=== PATIENT | female | born 1960 | race Caucasian/White ===

== ENCOUNTER 2016-11-23 05:30 | Day surgery (SDC) | payer BC ==
[2016-11-17 19:51] LABS: HEMATOCRIT 37.9 % (36.0-48.0)
[2016-11-17 20:12] LABS: BUN (BLOOD UREA NITROGEN) 20 MG/DL (6-23); CALCIUM, SERUM 9.6 MG/DL (8.5-10.4); CHLORIDE, SERUM 107 MMOL/L (96-112); CO2 (CARBON DIOXIDE) 25 MMOL/L (24-34); CREATININE 0.65 MG/DL (0.55-1.02); GFR AFRICAN AMERICAN 116 ML/MIN (>=60); GFR NON AFRICAN AMERICAN 100 ML/MIN (>=60); GLUCOSE, SERUM 78 MG/DL (60-99); POTASSIUM, SERUM 5.3 MMOL/L (3.5-5.3); SODIUM, SERUM 141 MMOL/L (135-148)
--- NOTE | ~2016-11-23 | OP ---
Record Of Operation [facility] [address] [place]. 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 PROCEDURE PERFORMED: Right knee arthroscopy with arthrofibrotic tissue excision/synovectomy and total knee arthroplasty. SURGEON: Laron Roman M.D. EARLY CHILDHOOD EDUCATION SPECIALIST: Neha Kothari. ANESTHESIA: General. PROCEDURE IN DETAIL: The patient was clearly identified. After obtaining informed consent, the patient was brought to the operating room at [facility] where she was induced under general anesthesia. Her right lower extremity was prepped and draped in the usual manner. This concluded after appropriate time-out and procedure was performed. Exsanguination was performed, tourniquet was elevated to 300 mmHg and successfully tested, at which point 30 mL of saline were instilled within the joint. Anteromedial and anterolateral portals formed. Arthroscopy begins revealing significant amounts of synovitis with internal impingement, as well as arthrofibrotic tissues. In the same fashion, the femoral tibial components also have evidence of impingement of pseudomenisci, which were rather frayed. And subsequently in stepwise fashion, a very careful debridement was performed of the joint surfaces including pseudomenisci to good stable tissues. There was no excessive bleeding. There was no evidence of pathology about the joint itself otherwise and subsequently, the joint was copiously irrigated. The outflow cannula drained. The portals were then closed with Vicryl and nylon. Ropivacaine was instilled within the joint. Subsequently, the legs then carefully cleansed and dressed. The patient was allowed to awaken and transferred to the recovery room in stable condition having tolerated the procedure well. ESTIMATED BLOOD LOSS: 5 mL. FLUIDS: 1000 mL. TOURNIQUET TIME: Approximately 35 minutes. PATHOLOGY: Sent specimen. MICROBIOLOGY: None. Record Of Operation [facility] [address] [facility] [address] NAME: JENNY HERZOG : 62 STATUS : [facility]#: [id number] AGE: 56 ADM/REG DATE : 11/23/16 MR#: [id number] REPORT SERV DATE: 11/23/16 DICTATED BY: LARON ROMAN DATE: 11/23/16 REPORT STATUS : Draft TRANSCRIBED BY: MODL DATE: 11/23/16 COMPLICATIONS: None. SPONGE AND NEEDLE COUNTS: Reportedly correct. ANTIBIOTICS: Administered appropriately preoperatively and ordered to be discontinued at conclusion of the case. LENCHO/CYNTHIA Laron Roman M.D. / [id number] CC: Jimbo Novak M.D.
[~2016-11-23 05:30] MED LIST: ACET500CAP PO; ADVIL PO; ASA5GR PO; ASAB PO; BENICAR20 PO; BENICAR40 PO; CO Q-10100 MG PO; CRESTOR20 MG PO; FISH-EPA1000 MG PO; IMDUR30 PO; LOP25 PO; LOP50 PO; LOVENOX40 SC; MAXALT10 MG PO; MOBIC15 MG PO; NITROSTAT0.4 MG SL; OXYCOD PO; PRILO PO; PRILOSEC40 MG PO; TOF50 PO; TOPXL25 PO; TOPXL50 PO
[2016-11-23 06:30] LABS: ASCORBIC ACID (UR NOT ORDER) NEG (NEG); BILIRUBIN, URINE NEGATIVE (NEG); KETONE, URINE NEGATIVE (NEG); LEUKOCYTE ESTERASE(NOT OR NEG (NEG); WBC (NOT ORDERED) (RFLEX) < 1 (0-5)
== END 2016-11-23 11:30 | disposition home or self-care (01) ==
LOC: SDC 05:30
PROVIDERS: Orthopaedic Surgery
PROC: 0SBC4ZZ Excision of Right Knee Joint, Percutaneous Endoscopic Approach (ICD-10-PCS; principal; 2016-11-23 06:45)
DX: M24.661 Ankylosis, right knee (principal); M96.830 Postprocedural hemorrhage of a musculoskeletal structure following a musculoskeletal system procedure; I10 Essential (primary) hypertension; E78.00 Pure hypercholesterolemia, unspecified; K21.9 Gastro-esophageal reflux disease without esophagitis; M19.90 Unspecified osteoarthritis, unspecified site; Z86.73 Personal history of transient ischemic attack (TIA), and cerebral infarction without residual deficits; Z87.891 Personal history of nicotine dependence; Z88.5 Allergy status to narcotic agent; Z88.1 Allergy status to other antibiotic agents; Z79.82 Long term (current) use of aspirin; Z79.899 Other long term (current) drug therapy; Z98.1 Arthrodesis status; Z96.651 Presence of right artificial knee joint; Z90.49 Acquired absence of other specified parts of digestive tract; Z90.710 Acquired absence of both cervix and uterus; Z98.890 Other specified postprocedural states
CPT/HCPCS: 36415; 80048; 81001; 85014; 85018; 88304; 93005; 99283; J0690; J2250; J2274; J2405; J2795; J3010

== ENCOUNTER 2016-11-23 13:49 | Emergency (ER) | payer BC | END 2016-11-23 14:46 | disposition home or self-care (01) | LOC: ER 13:49 | DX: M96.830 Postprocedural hemorrhage of a musculoskeletal structure following a musculoskeletal system procedure (principal); I10 Essential (primary) hypertension; Z86.73 Personal history of transient ischemic attack (TIA), and cerebral infarction without residual deficits; Z88.5 Allergy status to narcotic agent; Z88.1 Allergy status to other antibiotic agents; Z79.82 Long term (current) use of aspirin; Z79.899 Other long term (current) drug therapy | CPT/HCPCS: 99283 ==